=== PATIENT | male | born 1965 | race Caucasian/White ===

== ENCOUNTER 2016-05-18 20:13 | Emergency (ER) | payer MEDICAID, OTHER ==
[~2016-05-18] VITALS: Ht 182.9 cm; Wt 88.6 kg
[2016-05-18 20:16] VITALS: BP 148/94; PULSE 65; RESP 20; O2SAT 100
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
[2016-05-18 23:15] VITALS: BP 138/90; PULSE 62; RESP 18; O2SAT 99
[2016-05-19] MEDS ORDERED: _Amoxicillin 500 mg Capsule PO SCH (08:30)
== END 2016-05-18 23:17 | disposition home or self-care (01) ==
LOC: SED 20:13
DX: H66.002 Acute suppurative otitis media without spontaneous rupture of ear drum, left ear (principal); H93.13 Tinnitus, bilateral; F22 Delusional disorders; I10 Essential (primary) hypertension; F17.200 Nicotine dependence, unspecified, uncomplicated; Z88.5 Allergy status to narcotic agent

== ENCOUNTER 2016-06-05 17:47 | Inpatient (IN) | payer MEDICAID, OTHER ==
[~2016-06-05] VITALS: Ht 182.9 cm; Wt 86.4 kg
[2016-06-05 18:01] VITALS: BP 132/70; PULSE 84; RESP 14; O2SAT 96
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
[2016-06-05 18:48] LABS: BASOPHILS % (AUTO) 0.5 % (0-3); EOSINOPHILS % (AUTO) 2.4 % (0-5); MONOCYTES % (AUTO) 16.5 % (4-12); Mean Corpuscular Hemoglobin 32.9 pg (27.0-35.0); Mean Corpuscular Volume 93.9 fL (81-100); NEUTROPHILS % (AUTO) 44.6 % (40-74); Platelet Count 235 bil/L (150-400)
[2016-06-05 19:09] VITALS: BP 138/84; PULSE 75; O2SAT 96
[2016-06-05 23:32] VITALS: BP 127/86; PULSE 71; RESP 18; O2SAT 98
[2016-06-06] MEDS ORDERED: diphenhydrAMINE 50 mg Capsule PO PRN (01:15)
[2016-06-06] MEDS ORDERED: Haloperidol 5 mg/mL Inj IM PRN (01:15)
[2016-06-06] MEDS ORDERED: LORazepam 1 mg Tablet PO ONE (01:15)
[2016-06-06] MEDS ORDERED: Magnesium Hydroxide 10 mL Oral Concentration PO PRN (01:15)
[2016-06-06] MEDS ORDERED: Benzocaine-Menthol Lozenge 2/Pkg PO PRN (01:15)
[2016-06-06] MEDS ORDERED: Alum-Mag Hydrox-Simeth 30 mL Suspension PO PRN (01:15)
[2016-06-06] MEDS ORDERED: LORazepam 1 mg Tablet PO PRN (01:15)
--- NOTE | 2016-06-06 02:00 | NUR ---
Nursing Admit note Pt admitted at 0105 from our ED in a voluntary patient approved by ALBERTO Resendiz to start the 06/06 with review on the . Pt reports currently living in a tent on his mothers property. Pt complains of chips in head causing him to be able to read other peoples minds and causing noise within head. This appears to be his fixed delusion. Pt denies anxiety, reports positive for depression r/t burden he has become to his mother and daughters. Pt denies SI. or HI., patient denies psychiatric history other than four days spent as inpatient in [facility]. Pt presents well groomed, polite, cooperative, accepted medications as ordered and relaxed in room until noted to be asleep at 0215.
--- NOTE | 2016-06-06 02:59 | NUR ---
Observations 1900 to 0700 Pt arrived on the floor from our ER at 01:05 and was able to compete the entire intake process. Pt went straight to his room where he heas been ever since. Pt first appeared asleep at 02:15 and was observed every 15 minutes through the night as directed.
[2016-06-06 10:00] VITALS: BP 107/68; PULSE 81; RESP 16
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
--- NOTE | 2016-06-06 18:12 | NUR ---
Observations 0900 to 2130 Pt affect and mood was flat, isolative and guarded. Pt speech and eye contact was ok. Pt was in his room most of the shift. Pt attended meals and ate about 100% of her meals. Pt maintained behavior throughout the shift. Pt was polite and cooperative. Pt did not attend group and unit activities. Pt attended community meeting and set a daily goal. Pt kept to himself when out of his room. Pt was observed every 15 minutes throughout the shift as ordered.
--- NOTE | 2016-06-06 19:35 | NUR ---
[id number]. nurs. S: "I took that last night it made me feel weird, Look I am reading the paper I am thinking clearly I don't want to take that. O:Pt did agree to take prescribed zoloft with description of antidepressant func. but refused offered seroquel, stating that there was nothing wrong with with his thinking currently and he was not in need of any other med. Pt resting on bed out to get meals not interacting with peers and minimal staff interaction. Pt maintained calm controlled behaviour, some heightened agitation re taking meds. P:CNCP
--- NOTE | 2016-06-07 05:28 | NUR ---
nursing, nights, 11-7 s/o- has appeared to sleep after 1730 during q 15 minute assessments. a- no apparent distress. p- monitor behavior/emotional state, quality, times and amount of sleep, use and effect of medication. connie
[2016-06-07 10:30] VITALS: BP 110/73; PULSE 78; RESP 16
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
--- NOTE | 2016-06-07 17:48 | NUR ---
[facility] Day Shift Pt maintained behavioral control throughout the shift. Pt affect appears brighter than noted on previous shifts. Pt spends most of the shift resting in his room or obtaining snacks/drinks from the dining room. Pt is pleasant and appropriate with staff and peers when engaged. Pt requests grooming supplies in the AM, which staff provided as able. Pt attended community meeting in the AM. Pt attended all meals (though pt attended breakfast late in the AM) and ate approx 100% of all meals.
--- NOTE | 2016-06-07 23:58 | NUR ---
Pt in room at start of shift. At med pass time pt stated "I dont need anything except to get out of here. You guys are making it worse". Pt went onto say that the WiFi in the ceiling outside his room is causing ringing in his brain and wants to leave AMA. Pt is in the hospital voluntarily and was encouraged to wait and talk to MD in the a.m. Pt was insistent that MD be notified of his request to leave. Dr. Balderrama was notified and gave a verbal order to call [facility] if he insists on leaving. Pt went to bed and did not press the issue further. Monitoring ongoing.
--- NOTE | 2016-06-08 05:43 | NUR ---
nursing, nights, 11-7 s/o- has appeared to sleep after 0 during q 15 minute assessments. a- no apparent distress. p- monitor behavior/emotional state, quality, times and amount of sleep, use and effect of medication. connie
[2016-06-08] MEDS ORDERED: QUET25TA73 PO (12:32)
[2016-06-08] MEDS ORDERED: SERT50TA9 PO (12:32)
--- NOTE | 2016-06-08 12:35 | PCM.DIMED ---
Discharge Instructions Date of Service Jun 08, 2016 Dates of Hospitalization Jun 06, 2016 at 00:26 Discharge Diagnosis Discharge Diagnosis AXIS I 1. Major depressive disorder, recurrent type, with psychotic features. 2. Delusional disorder, not otherwise specified. 3. Polysubstance use disorder with opiates, in remission. 4. Alcohol use disorder, in remission. AXIS II Deferred. AXIS III 1. History of severe traumatic brain injury. 2. History of spinal fusion of C4-C7. 3. History of chronic pain. AXIS IV Stressors are noted for chronic disturbance of pain, history of social isolation. AXIS V Global Assessment of Functioning current 45 Medication Instructions I Strongly encouraged patient to follow up with outpatient care: 1-Recommended patient takes medication as prescribed and not alter this unless under the direct care of a provider. 2-Recommend client refrain from recreational drugs and alcohol while taking psychiatric medications. 3-Recommend client start a 12 step program to deal with issues of addiction. 4-Recommend patient attempt to find a therapist or group to deal with impulse control Diet No restrictions Activity No restrictions Call your provider Fever or Chills Patient Instructions Follow-up plan Client follow-up with Dr. Lees Friday. [facility]. Follow-up with PCP in: 2 weeks Dwight Balderrama MD Jun 08, 2016 12:35
[2016-06-08 13:10] VITALS: BP 128/79; PULSE 83; RESP 16
--- NOTE | 2016-06-08 13:25 | DIS ---
[address] [address] DISCHARGE SUMMARY PATIENT: ANTONIO DANIEL : 1965 MR#: [id number] ADMIT: 06/06/2016 JOB ID: [id number] DIS: IDENTIFICATION: The patient is a 50-year-old white male. He is currently homeless, living in the [place] area. He has a trailer on family property. He does live independently. He has six children from a previous relationship, but little contact. He has had drug dependency he has had drug and alcohol dependency issues in the past. 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 He has an injury with fusion of his spine levels C4 through 7. REASON FOR ADMISSION: Client came to the ER complaining of having [employer] put a chip in his brain. He was wanting to find high voltage electricity in order to deactivate the chip. He was willing to come to our unit on a voluntary basis. SUMMARY OF PRESENT ILLNESS: Client is a 50-year-old white male who has a history of a TBI due to multiple injuries. He had a back injury where he required fusions C4 through 7 and has been unable to work. He is currently on disability. For unclear reasons, client had increasing stress and was beginning to have increasing symptoms of psychosis. It was concern that he could potentially be a harm to himself in such a paranoid case and he was admitted to our unit for evaluation and treatment. HOSPITAL COURSE: Client was admitted to our unit and was provided with a high degree of safety through the structure and active adult engagement he received here. We had him participate in one-to-one unit and group activities focused on improving reality based thinking and his coping skills. He was willing to participate actively in the unit activities. He was willing to take Seroquel 50 mg a day for anxiety and psychosis and Zoloft 50 mg daily. With this relatively low-dose antipsychotic, he showed significant improvement on a daily basis and is today requesting discharge. MENTAL STATUS EXAM: Client disheveled, but with good eye contact and appropriate interpersonal manners. His behavior was calm and his attitude was pleasant. His speech was normal rate and rhythm. Mood was euthymic. Affect congruent. Normal intensity. Thought process: Client was able to relate a coherent history of events leading up to hospitalization. His thought process is generally logical, coherent, and spontaneous without psychosis today. Thought content: Significant for themes of future planning, how he will get his medications, and get set up on his routine back home in [place]. He denied suicidal ideation, plan, or intent. He denied delusions relating to implants placed by [employer] and [employer]. Client alert and oriented to person, place, and date. Attention and concentration relatively normal. Insight and judgment appropriate. Impulse control highly contained. Reality testing intact. Competence to handle current stressors appears to be at baseline. DISCHARGE DIAGNOSES: AXIS I: 1. Major depressive disorder, recurrent, with psychotic features. 2. Delusional disorder, not otherwise specified. 3. Polysubstance abuse with opiates, in remission. 4. Alcohol abuse disorder, in remission. AXIS II: Deferred. AXIS III: 1. Traumatic brain injury. 2. Spinal fusion, C4-C7. 3. History of chronic pain. AXIS IV: Moderate due to chronic pain and social isolation. AXIS V: Current Global Assessment of Functioning equal to 45. DISCHARGE PLAN: Recommend client participate in a 12 step program for treatment of addiction issues and for meaningful social contact. Recommend he follow up with primary care physician, Dr. Lees. The office is closed today and he agreed to schedule with Dr. Lees at [facility] in [place], [place]. DISCHARGE MEDICATIONS: Seroquel 50 mg per day up to q.4 h. for anxiety and agitation, Zoloft 50 mg q.a.m. ACTIVITY AND DIET: Recommend client refrain from recreational drugs and alcohol while taking psychiatric medications. Recommend he not change medications unless under the supervision of a physician. CONDITION ON DISCHARGE: Good. PROGNOSIS: Guarded due to relatively untreated substance abuse.
--- NOTE | 2016-06-08 14:11 | NUR ---
discharge note-Nursing Pt. was ambulatory and discharged via cab. He denies any hallucinations, paranoid ideation, SI or HI. He denies feeling depressed or anxious. He has an even, steady gait with use of his cane. He did not report any current pain. He stated he understood his safety plan, discharge plan and future medication regimen. He has direct eye contact and stated he would eat a steak once he gets home. He stated he slept well last night did not have any nightmares.
--- NOTE | 2016-06-08 14:24 | NUR ---
Mercantile Agent./ c.m. S./O.: pt. asked for discharge home today. He denied SI/HI, denied depression or anxiety. Log Processor Operator tried to call [facility] in [place] to schedule follow up appt. for meds with Sheron Moura MD but that office was closed for a weekend. Log Processor Operator gave pt. all information about Dr. Lees location and a phone # ([phone]). Pt. agreed to schedule follow up appt. by himself. A.: pt. is cooperative, quiet, wants to go home. P.: monitor behavior, follow care plan.
== END 2016-06-08 14:10 | disposition home or self-care (01) | DRG 885 ==
LOC: SED 17:47 → EDBD 17:47 → MHC 06-06 00:26
PROVIDERS: ADMIT Psychiatry & Neurology Psychiatry; ATTEND Psychiatry & Neurology Psychiatry
DX: F33.3 Major depressive disorder, recurrent, severe with psychotic symptoms (principal); F10.21 Alcohol dependence, in remission; F11.21 Opioid dependence, in remission; F43.12 Post-traumatic stress disorder, chronic; Z87.820 Personal history of traumatic brain injury; Z59.0 Homelessness